=== PATIENT | female | born 1980 | race Two or more races ===

== ENCOUNTER 2020-04-04 19:09 | Emergency (ER) | payer OTHER ==
[~2020-04-04] VITALS: Ht 165.1 cm; Wt 81.2 kg
[2020-04-04] MEDS ORDERED: ASPIR 8181 MG PO (21:17)
[2020-04-04] MEDS ORDERED: PRENA1 TRUE CO1 EACH PO (21:17)
[2020-04-04] MEDS ORDERED: PROBIOTIC1 EAC4 PO (21:17)
[2020-04-05] MEDS ORDERED: VALTREX1000 MG PO (02:14)
[2020-04-05] MEDS ORDERED: MEDROL2 MG PO (02:14)
== END 2020-04-05 02:19 | disposition home or self-care (01) ==
LOC: ER 19:09
DX: O26.893 Other specified pregnancy related conditions, third trimester (principal); G51.0 Bell's palsy; Z3A.32 32 weeks gestation of pregnancy
CPT/HCPCS: 70545

== ENCOUNTER 2020-05-05 09:30 | Inpatient (IN) | payer OTHER ==
[~2020-05-05] VITALS: Ht 165.1 cm; Wt 83.9 kg
[~2020-05-05 09:30] MED LIST: ASPIR 8181 MG PO; MEDROL2 MG PO; PRENA1 TRUE CO1 EACH PO; PROBIOTIC1 EAC4 PO; VALTREX1000 MG PO
[2020-05-25] MEDS ORDERED: IRON PO (10:00)
== END 2020-05-27 13:42 | disposition home or self-care (01) | DRG 807 ==
LOC: LDR 05-25 09:10 → OB/GYN 05-25 09:10 → LDR 05-27 09:30 → OB/GYN 05-27 13:42
PROVIDERS: ADMIT Obstetrics & Gynecology Maternal & Fetal Medicine; ATTEND Obstetrics & Gynecology Maternal & Fetal Medicine
PROC: 10E0XZZ Delivery of Products of Conception, External Approach (ICD-10-PCS; principal; 2020-05-25)
PROC: 4A0HXFZ Measurement of Products of Conception, Cardiac Rhythm, External Approach (ICD-10-PCS; 2020-05-25)
PROC: 3E033VJ Introduction of Other Hormone into Peripheral Vein, Percutaneous Approach (ICD-10-PCS; 2020-05-25)
DX: O80 Encounter for full-term uncomplicated delivery (principal); Z37.0 Single live birth; Z3A.38 38 weeks gestation of pregnancy; G51.0 Bell's palsy

== ENCOUNTER → 2020-05-19 | Outpatient (CLI) | payer OTHER | END | disposition home or self-care (01) | LOC: NST 14:37 | PROVIDERS: ATTEND Obstetrics & Gynecology Maternal & Fetal Medicine | DX: Z34.83 Encounter for supervision of other normal pregnancy, third trimester (principal) ==